=== PATIENT | male | born 1940 | race Hispanic/Latino ===

== ENCOUNTER 2023-08-24 19:11 | Inpatient (IN) | payer MEDICARE ==
[~2023-08-24] VITALS: Ht 167.6 cm; Wt 114.8 kg
[2023-08-24 20:26] LABS: HEMATOCRIT 37.7 % (42-54); MEAN CORPUSCULAR HEMOGLOBIN 29.9 pg (27.0-33.0); MEAN CORPUSCULAR HGB CONC 32.6 g/dL (32.0-36.0); MEAN CORPUSCULAR VOLUME 91.5 fL (79-99); PLATELET COUNT (AUTO) 165 K/uL (130-400); RED BLOOD CELL COUNT(AUTO) 4.12 MIL/uL (4.50-6.20); RED CELL DISTRIBUTION WIDTH 13.9 % (11.0-15.5); WHITE BLOOD COUNT (AUTO) 5.2 K/uL (4.8-10.8)
[2023-08-24 20:28] LABS: BASOPHILS # (AUTO) 0.04 K/uL (0.00-0.20); BASOPHILS % (AUTO) 0.8 % (0.0-5.0); IMMATURE GRANULOCYTE ABSOLUTE 0.02 K/uL (0-1); LYMPHOCYTES # (AUTO) 1.4 K/uL (1.0-4.8); LYMPHOCYTES % (AUTO) 28.3 % (21.0-51.0); MONOCYTES # (AUTO) 0.5 K/uL (0.1-1.0); MONOCYTES % (AUTO) 9.8 % (3.0-13.0); NEUTROPHILS % (AUTO) 58.7 % (40.0-77.0)
[2023-08-24] MEDS ORDERED: TAMS-1 PO (20:52)
[2023-08-24] MEDS ORDERED: MELA10TA20 PO (20:52)
[2023-08-24] MEDS ORDERED: GLUC1VIA14 IJ (20:52)
[2023-08-24] MEDS ORDERED: BUSP15TA3 PO (20:52)
[2023-08-24] MEDS ORDERED: DONE10TA43 PO (20:52)
[2023-08-24] MEDS ORDERED: LACT10SO95 PO (20:52)
[2023-08-24] MEDS ORDERED: MEMA10TA21 PO (20:52)
[2023-08-24] MEDS ORDERED: DIVA500T2 PO (20:52)
[2023-08-24] MEDS ORDERED: ERGO2000 PO (20:52)
[2023-08-24] MEDS ORDERED: ACET650O3 PO (20:52)
[2023-08-24] MEDS ORDERED: LISI5TAB21 PO (20:52)
[2023-08-24] MEDS ORDERED: ATOR10 PO (20:52)
[2023-08-24] MEDS ORDERED: FAMO20TA8 PO (20:52)
[2023-08-24] MEDS ORDERED: [UNRECOGNIZED DRUG - CODE] TP (20:52)
[2023-08-24] MEDS ORDERED: DOXE6TAB4 PO (20:52)
[2023-08-24] MEDS ORDERED: SERT100T PO (20:52)
[2023-08-24 21:07] LABS: CREATININE 0.9 mg/dL (0.5-1.3)
[2023-08-24 21:14] LABS: ALBUMIN 3.1 g/dL (3.5-5.0); BILIRUBIN,TOTAL 0.2 mg/dL (0.2-1.0); MAGNESIUM 2.1 mg/dL (1.80-2.40); TOTAL PROTEIN, SERUM 7.1 g/dL (6.0-8.3)
[2023-08-24] MEDS ORDERED: KETOROLAC 15MG/ML VIAL (15MG/ML) IV PRN (22:00)
[2023-08-24] MEDS ORDERED: DiphenhydrAMINE HCL 50 MG/ML VIAL IV PRN (22:00)
[2023-08-24] MEDS ORDERED: ACETAMINOPHEN 325 MG TAB PO PRN ×3 (22:00)
[2023-08-24] MEDS ORDERED: LACTULOSE 20 GM/30 ML UDCUP PO PRN (22:00)
[2023-08-24] MEDS ORDERED: POTASSIUM CHLORIDE 20MEQ/100ML 100 ML IV PRN (22:00)
[2023-08-24] MEDS ORDERED: MAG/ALUM/SIMETH 30 ML UDCUP PO PRN (22:00)
[2023-08-24] MEDS ORDERED: FAMOTIDINE 20MG VIAL IV PRN (22:00)
[2023-08-24] MEDS ORDERED: NITROGLYCERIN 0.4 MG SL TAB SL PRN (22:00)
[2023-08-24] MEDS ORDERED: DEXTROSE 50%-WATER 50 ML DISP.SYRIN IV PRN (22:00)
[2023-08-24] MEDS ORDERED: GLUCAGON 1MG KIT 1 MG ML IM PRN (22:00)
[2023-08-24] MEDS ORDERED: GUAIFENESIN-DM 200/20 MG 10 ML PO PRN (22:00)
[2023-08-24] MEDS ORDERED: ONDANSETRON 4MG INJ IV PRN (22:00)
[2023-08-24] MEDS: 0.9%NACL 1000ML 1,000 ML IV SCH (22:23)
[2023-08-24 22:43] LABS: APPEARANCE,URINE CLEAR (CLEAR); BILIRUBIN,URINE NEGATIVE (NEGATIVE); COLOR,URINE COLORLESS (YELLOW); GLUCOSE, URINE (UA) NEGATIVE (NEGATIVE); KETONES,URINE NEGATIVE (NEGATIVE); LEUKOCYTE ESTERASE ,URINE NEGATIVE Leu/uL (NEGATIVE); NITRATE,URINE NEGATIVE (NEGATIVE); OCCULT BLOOD,URINE NEGATIVE (NEGATIVE); PROTEIN,URINE NEGATIVE (NEGATIVE); UROBILINOGEN,URINE 0.2 mg/dL (0.2-1.0)
[2023-08-24 22:47] LABS: RBC,URINE 0-1 /HPF (0-1); SQUAMOUS EPITHELIAL CELL,UR RARE /HPF (0-2)
[2023-08-24] MEDS: ZOLPIDEM TARTRATE 5 MG TAB PO PRN (22:53)
[2023-08-24] MEDS: HYDRALAZINE 20MG/ML VIAL IV PRN (23:49)
[2023-08-25] VITALS (7 sets, daily range): BP systolic 118–162; BP diastolic 48–62; PULSE 65–79; RESP 16–17; O2SAT 96–98
[2023-08-25 04:36] LABS: BASOPHILS # (AUTO) 0.03 K/uL (0.00-0.20); BASOPHILS % (AUTO) 0.5 % (0.0-5.0); EOSINOPHILS % (AUTO) 1.6 % (0.0-8.0); HEMATOCRIT 34.9 % (42-54); IMMATURE GRANULOCYTE ABSOLUTE 0.02 K/uL (0-1); LYMPHOCYTES # (AUTO) 1.7 K/uL (1.0-4.8); LYMPHOCYTES % (AUTO) 27.4 % (21.0-51.0); MEAN CORPUSCULAR HEMOGLOBIN 29.5 pg (27.0-33.0); MEAN CORPUSCULAR HGB CONC 32.4 g/dL (32.0-36.0); MEAN CORPUSCULAR VOLUME 91.1 fL (79-99); MONOCYTES # (AUTO) 0.6 K/uL (0.1-1.0); MONOCYTES % (AUTO) 9.6 % (3.0-13.0); NEUTROPHILS # (AUTO) 3.8 K/uL (1.8-7.7); NEUTROPHILS % (AUTO) 60.6 % (40.0-77.0); PLATELET COUNT (AUTO) 165 K/uL (130-400); RED BLOOD CELL COUNT(AUTO) 3.83 MIL/uL (4.50-6.20); RED CELL DISTRIBUTION WIDTH 13.9 % (11.0-15.5); WHITE BLOOD COUNT (AUTO) 6.2 K/uL (4.8-10.8)
[2023-08-25 04:53] LABS: HEMOGLOBIN A1C 5.3 % (4.0-6.0)
[2023-08-25 04:59] LABS: ALBUMIN 2.7 g/dL (3.5-5.0); BILIRUBIN,DIRECT 0.1 mg/dL (0.0-0.3); BILIRUBIN,TOTAL 0.3 mg/dL (0.2-1.0); CREATININE 0.9 mg/dL (0.5-1.3); POTASSIUM 3.9 mmol/L (3.5-5.1); TOTAL PROTEIN, SERUM 6.2 g/dL (6.0-8.3)
[2023-08-25] MEDS ORDERED: LACT10SO5 PO (05:11)
[2023-08-25] MEDS ORDERED: DICL100G60 TP (05:11)
[2023-08-25] MEDS: INSULIN HUMULIN R 100 UNIT/ML 3ML SQ SCH (05:28)
[2023-08-25] MEDS: FAMOTIDINE 20MG VIAL IV SCH (09:46)
[2023-08-25] MEDS: HEPARIN 5,000 UNIT VIAL SQ SCH (09:53)
[2023-08-25] MEDS: MELATONIN 5 MG TABLET PO SCH (20:36)
[2023-08-25] MEDS: MEMANTINE HCL 5 MG TABLET PO SCH (20:36)
[2023-08-25] MEDS: TAMSULOSIN HCL 0.4 MG CAP.ER.24H PO SCH (20:36)
[2023-08-25] MEDS: BUSPIRONE HCL 5 MG TABLET PO SCH (20:37)
[2023-08-25] MEDS: ATORVASTATIN 10 MG TABLET PO SCH (20:37)
[2023-08-25] MEDS: DIVALPROEX SODIUM 250 MG TABLET.DR PO SCH (20:37)
[2023-08-25] MEDS: DONEPEZIL HCL 5 MG TAB PO SCH (20:37)
[2023-08-25] MEDS: FAMOTIDINE 20MG TAB PO SCH (20:37)
[2023-08-25] MEDS: SERTRALINE HCL 50 MG TABLET PO SCH (20:37)
[2023-08-25] MEDS: DOXEPIN HCL 6 MG PO SCH (20:38)
[2023-08-25] MEDS ORDERED: MELATONIN 10 MG PO SCH (21:00)
[2023-08-25] MEDS ORDERED: NON-FORMULARY MEDICATION 1 EACH (Donepezil HCl 10 MG) PO SCH (21:00)
[2023-08-25] MEDS ORDERED: DIVALPROEX SODIUM 500 MG PO SCH (21:00)
[2023-08-25] MEDS ORDERED: NON-FORMULARY MEDICATION 1 EACH (Sertraline HCl (Zoloft) 100 MG) PO SCH (21:00)
[2023-08-25] MEDS ORDERED: NON-FORMULARY MEDICATION 1 EACH (Buspirone HCl 15 MG) PO SCH (21:00)
[2023-08-25] MEDS ORDERED: NON-FORMULARY MEDICATION 1 EACH (Memantine HCl 10 MG) PO SCH (21:00)
[2023-08-26] VITALS (13 sets, daily range): BP systolic 101–146; BP diastolic 55–100; PULSE 52–110; RESP 17–20; O2SAT 96–97
[2023-08-26 04:35] LABS: BASOPHILS # (AUTO) 0.02 K/uL (0.00-0.20); BASOPHILS % (AUTO) 0.5 % (0.0-5.0); EOSINOPHILS % (AUTO) 2.3 % (0.0-8.0); HEMATOCRIT 32.5 % (42-54); IMMATURE GRANULOCYTE ABSOLUTE 0.01 K/uL (0-1); LYMPHOCYTES # (AUTO) 1.6 K/uL (1.0-4.8); LYMPHOCYTES % (AUTO) 38.1 % (21.0-51.0); MEAN CORPUSCULAR HEMOGLOBIN 29.3 pg (27.0-33.0); MEAN CORPUSCULAR HGB CONC 32.9 g/dL (32.0-36.0); MONOCYTES # (AUTO) 0.4 K/uL (0.1-1.0); NEUTROPHILS # (AUTO) 2.1 K/uL (1.8-7.7); NEUTROPHILS % (AUTO) 48.9 % (40.0-77.0); PLATELET COUNT (AUTO) 156 K/uL (130-400); RED BLOOD CELL COUNT(AUTO) 3.65 MIL/uL (4.50-6.20); WHITE BLOOD COUNT (AUTO) 4.3 K/uL (4.8-10.8)
[2023-08-26 05:02] LABS: CREATININE 0.7 mg/dL (0.5-1.3); MAGNESIUM 1.9 mg/dL (1.80-2.40); PHOSPHORUS 3.6 mg/dL (2.5-4.9); POTASSIUM 3.8 mmol/L (3.5-5.1)
[2023-08-26] MEDS: POTASSIUM CHLORIDE 10% ELIXIR 20 MEQ/15 ML UDCUP PO PRN (05:19)
[2023-08-26] MEDS: MAGNESIUM 2GM PREMIX 50ML 50 ML IV PRN (05:20)
[2023-08-26] MEDS ORDERED: LACTULOSE 30 GM PO SCH (09:00)
[2023-08-26] MEDS: VITAMIN D2 PO SCH (11:05)
[2023-08-26] MEDS: LISINOPRIL 5 MG TABLET PO SCH (11:05)
[2023-08-26] MEDS: LACTULOSE 20 GM/30 ML UDCUP PO SCH (11:05)
[2023-08-26] MEDS: KCL 20 MEQ ERTAB PO PRN (11:23)
[2023-08-27 03:06] VITALS: BP 136/65; PULSE 61; RESP 16
[2023-08-27 04:41] LABS: BASOPHILS # (AUTO) 0.03 K/uL (0.00-0.20); BASOPHILS % (AUTO) 0.6 % (0.0-5.0); EOSINOPHILS # (AUTO) 0.09 K/uL (0.00-0.70); EOSINOPHILS % (AUTO) 1.8 % (0.0-8.0); IMMATURE GRANULOCYTE ABSOLUTE 0.02 K/uL (0-1); LYMPHOCYTES # (AUTO) 1.7 K/uL (1.0-4.8); LYMPHOCYTES % (AUTO) 34.3 % (21.0-51.0); MEAN CORPUSCULAR HEMOGLOBIN 29.6 pg (27.0-33.0); MEAN CORPUSCULAR HGB CONC 33.2 g/dL (32.0-36.0); MEAN CORPUSCULAR VOLUME 89.4 fL (79-99); MONOCYTES # (AUTO) 0.6 K/uL (0.1-1.0); MONOCYTES % (AUTO) 11.4 % (3.0-13.0); NEUTROPHILS # (AUTO) 2.6 K/uL (1.8-7.7); NEUTROPHILS % (AUTO) 51.5 % (40.0-77.0); PLATELET COUNT (AUTO) 181 K/uL (130-400); RED BLOOD CELL COUNT(AUTO) 4.25 MIL/uL (4.50-6.20); RED CELL DISTRIBUTION WIDTH 13.9 % (11.0-15.5)
[2023-08-27 05:04] LABS: CREATININE 0.8 mg/dL (0.5-1.3)
[2023-08-27 06:19] VITALS: BP 135/55; PULSE 58
[2023-08-27 07:55] VITALS: BP 111/50; PULSE 53; RESP 16
[2023-08-27 08:00] VITALS: O2SAT 97
[2023-08-27 11:36] VITALS: BP 105/61; PULSE 54; RESP 16
[2023-08-27 16:16] VITALS: BP 121/47; PULSE 54; RESP 16
== END 2023-08-27 18:20 | DRG 312 ==
LOC: EDH 19:11 → EDHIP 21:43 → 3CH 08-25 00:48
PROVIDERS: ADMIT Hospitalist; ATTEND Hospitalist
DX: I95.2 Hypotension due to drugs (principal); I44.0 Atrioventricular block, first degree; G30.9 Alzheimer's disease, unspecified; E11.9 Type 2 diabetes mellitus without complications; F32.A Depression, unspecified; F41.9 Anxiety disorder, unspecified; D64.9 Anemia, unspecified; E78.5 Hyperlipidemia, unspecified; I10 Essential (primary) hypertension; T50.995A Adverse effect of other drugs, medicaments and biological substances, initial encounter; F02.80 Dementia in other diseases classified elsewhere, unspecified severity, without behavioral disturbance, psychotic disturbance, mood disturbance, and anxiety; N40.0 Benign prostatic hyperplasia without lower urinary tract symptoms; M19.09 Primary osteoarthritis, other specified site; Z96.653 Presence of artificial knee joint, bilateral; Z98.1 Arthrodesis status; Y92.89 Other specified places as the place of occurrence of the external cause; Z79.899 Other long term (current) drug therapy
CPT/HCPCS: 36415; 70450; 71045; 80048; 80053; 80076; 81001; 82140; 82550; 82948; 83036; 83605; 83735; 83880; 84100; 84145; 84443; 84484; 85025; 93005; 93306; 93880; G0378; J0360; J1644; J3475; J3490; J7030